=== PATIENT | male | born 1985 | race Caucasian/White ===

== ENCOUNTER 2020-10-31 08:13 | Outpatient (CLI) | payer OTHER, SELFPAY ==
[2020-10-31 10:30] LABS: SARS-CoV-2 RNA PCR Negative (Negative)
== END 2020-10-31 08:14 | disposition home or self-care (01) ==
LOC: CHSLAB 08:17
PROVIDERS: PCP Family Medicine; Visit Provider Surgery
DX: R22.30 Localized swelling, mass and lump, unspecified upper limb (principal); Z20.822 Contact with and (suspected) exposure to COVID-19
CPT/HCPCS: C9803; U0003; U0005

== ENCOUNTER 2020-11-03 00:29 | Day surgery (SDC) | payer OTHER, SELFPAY ==
[2020-10-21 17:40] VITALS: BMI 27.5
[2020-11-03 12:15] VITALS: BP 127/72; PULSE 70; RESP 18; TEMP 36.9; O2SAT 100
[2020-11-03] MEDS: LACTATED RINGERS 1,000 ML 30 ML IV CONT (12:18)
--- NOTE | 2020-11-03 12:20 | WPDANESEPPF ---
Anes - Initial Pre Proc Eval Procedure: Operation Date: 11/03/20 13:30 Proposed Procedures p Excision Of Mass Left Posterior Shoulder - Michel Bishop MD Date/Time: 11/03/20 12:20 Surgeon: Michel Bishop MD Pre Op Diagnosis: left shoulder mass Patient Data Age: 35 Gender: M Height: 5 ft 6 in Weight: 77.27 kg Allergies Allergy/AdvReac Type Severity Reaction Status Date / Time Penicillins Allergy Intermediate hives Verified 10/21/20 17:26 Home Medications Medication Instructions Recorded Confirmed Type No Home Medications 09/23/20 10/21/20 History Patient hx anesthesia problems: none Family hx anesthesia problems: none PMFSH Family History Family History Father Depression Family history of alcoholism Social History Social History Smoking status: Never smoker Tobacco type: cigarettes Additional smoking assessment comments: occasional Alcohol intake: current Drinks per week: 2 Substance use: unknown Living arrangements: with family Additional occupation/education comments: [employer] at [address] Gender identity (if verbalized by the patient): Male Spiritual care concerns: No Anes - Eval Final PreProcedure Day of Procedure 11/03/20 12:20 Patient weight: normal Heart: regular rate and rhythm Lungs: clear to auscultation Airway: Mallampati scale class 1 Neurological: alert and oriented Last oral intake: >/= 8 hours ASA classification: I Emergent: no Anesthetic plan: proceed Anesthesia type and monitoring: general GIVS and standard monitoring Informed Consent: The patient's anesthetic plan and its attendant risks and benefits were discussed with the patient/family/POA. Questions were solicited and answers provided to the satisfaction of the patient/family/POA.
--- NOTE | 2020-11-03 13:16 | WPDHPUPDATE1 ---
History and Physical Update Update Date/Time: 11/03/20 13:16 History and Physical has been reviewed, including an updated exam of the patient. There are NO changes in the patient's condition. Risks, benefits, and alternatives have been discussed and questions answered. Patient agrees to proceed with procedure.
[2020-11-03] MEDS: ceFAZolin 2 GM/D5W 50 ML 2 GM/50 ML BAG IVPB (13:32)
[2020-11-03] MEDS: BUPIVACAINE/EPINEPHRINE 0.5% 10 ML VIAL INFILTRATE (13:56)
[2020-11-03 14:28] VITALS: BP 104/60; PULSE 75; RESP 16
--- NOTE | 2020-11-03 14:35 | P.OP_ITS ---
Procedure Note - Detailed Date of procedure: 11/03/20 Pre-op diagnosis: left shoulder mass Post-op diagnosis: same (Same, suspected lipoma) Procedure performed: Excision of subcutaneous mass left posterior shoulder. Description of procedure: The patient was placed in the right lateral decubitus position. After a surgical time out confirming patient and procedure the patient was prepped and draped in the usual sterile fashion. Local anesthetic was administered subcutaneously in the outlined transverse incision. Prior to starting the incision I outlined the circumference of the lesion on the skin so that I would know how far out to dissect.. The lesion measured approximately 5 cm in diameter. A direct incision was made over the palpable movable soft lesion. I cut down until we could see what appeared to be a little bit of bulging fat suggestive of the lipoma showing through the incision. I then made inferior superior flaps and carefully rotated off the underlying fascia with Bovie cautery from lateral to medial. It appeared that I was taking a thin margin of capsule along with the lipoma. I dissected down to and through the deep subcutaneous tissues and then completely excised the apparent lipoma. Bleeding was controlled with electrocautery. Prior to passing the specimen off the field I measured it and transversely it was 5 cm. Vertically it was 4.5 cm. It was about 2.5 cm thick. The wound was closed in two layers. An un-dyed 2-0 vicryl deep dermal and then a 4-0 undyed Monocryl running subcuticular closure was completed. Surgical glue applied as dressing. Patient was taken recovery room in good condition. Estimated blood loss was about 5 cc Patient tolerated this well. Implants: None Anesthesia: MAC and local (0.5% Marcaine with epinephrine) Surgeon: Michel Bishop MD Director Of Education And Training: AUGUSTIN Cardona, OR 1st assist Estimated blood loss (mL): 5 Drains: No Packing: No Pathology: yes (Spongy fatty tumor sent for pathology) Complications: No immediate complications Condition: stable Disposition: same day Findings: Spongy fatty tumor made up the mass and was in the subcutaneous layer. It was densely adhered to the underlying fascia.
[2020-11-03 14:45] VITALS: BP 111/73; PULSE 67; RESP 20
[2020-11-03 15:15] VITALS: BP 111/73; PULSE 64; RESP 20
== END 2020-11-03 15:22 | disposition home or self-care (01) ==
PROVIDERS: PCP Family Medicine; Visit Provider Surgery
PROC: (CPT 24071; principal; 2020-11-03 13:30)
DX: D17.22 Benign lipomatous neoplasm of skin and subcutaneous tissue of left arm (principal)
CPT/HCPCS: 24071; 88304; J0690; J2250; J2704; J3010; J7120

== ENCOUNTER → 2023-01-20 10:24 | Outpatient (CLI) | payer OTHER, SELFPAY ==
--- NOTE | ~2023-01-20 | XR_ITS ---
EXAMINATION: XR shoulder RT min 2V INDICATION: Right shoulder pain TECHNIQUE: Four views of the right shoulder are submitted. COMPARISON: None FINDINGS: Normal alignment. No fracture. There is mild glenohumeral and acromioclavicular joint osteo arthritis. Soft tissues are unremarkable. IMPRESSION: 1. Mild osteoarthritis. Reviewed, dictated and finalized at location B. IMPRESSION: 1. Mild osteoarthritis.
== END ==
PROVIDERS: PCP Family Medicine; Visit Provider Family Medicine
DX: M19.011 Primary osteoarthritis, right shoulder (principal)
CPT/HCPCS: 73030

== ENCOUNTER 2025-03-10 11:39 | Outpatient (CLI) | payer OTHER, SELFPAY ==
--- NOTE | ~2025-03-10 | XR_ITS ---
EXAMINATION: XR knee RT min 4V, 03/10/2025 11:52 CDT HISTORY: Unspecified internal derangement of unspecified , pain x 1 y COMPARISON: No comparisons available. Findings: No acute fracture or malalignment. No significant degenerative changes. Soft tissues unremarkable. Impression: No acute fracture or malalignment. Reviewed, dictated and finalized at location P. Impression: No acute fracture or malalignment.
== END 2025-03-10 11:40 | disposition home or self-care (01) ==
LOC: GOSHIMG 11:40
PROVIDERS: PCP Family Medicine; Visit Provider Family Medicine
DX: M23.91 Unspecified internal derangement of right knee (principal)
CPT/HCPCS: 73564